=== PATIENT | female | born 1940 | race Caucasian/White ===

== ENCOUNTER 2025-03-26 10:47 | Emergency (ER) | payer BC, SELFPAY ==
[2025-03-26 10:51] VITALS: BP 166/85
--- NOTE | 2025-03-26 11:21 | ED.GENMED ---
History of Present Illness
General
Chief Complaint: DVT/Possible Blood Clot
Source: patient and family (Daughter)
Exam Limitations: none
Time Seen by Provider: 03/26/25 11:12
Nursing documentation reviewed up to this point in time: agreed with
History of Present Illness
History of Present Illness:
84-year-old female with past medical history of breast cancer in remission, Mohs surgery on her left lower leg approximately 5 months ago who presents to the emergency department with her daughter for evaluation of left leg pain and swelling.
Patient reports onset of symptoms about 2 or 3 days ago and they have been constant since that time. She reports pain and swelling in the lower leg extending from just below the knee down towards the ankle and foot. She did have Mohs surgery by 5
months ago and still has minor wound on the medial left ankle; she says she was scratching the area recently and did cause minor skin abrasion. Aside from pain and swelling patient reports some mild pain in her right flank/mid back for the past 2
or 3 days as well. She denies any shortness of breath. She denies any fever or chills. She denies any other acute complaints. Patient makes note that she recently was driving for 2 days from [place] with her daughter; they were concerned for DVT
however patient denies any known history of DVT.
Review of Systems
Review of Systems
All Other Systems: ROS reviewed and negative except as documented in HPI and ROS
Constitutional: Denies fever or chills
Respiratory: Denies trouble breathing
Cardiac: Denies chest pain
ABD/GI: Denies abdominal pain, nausea or vomiting
Musculoskeletal: Reports muscle pain, edema and back pain; Denies neck pain
Neurological: Denies dizzy or headache
Phy Exam
Physical Exam
Physical Exam:
General: Awake, alert, oriented x3; no acute distress
Head: Normocephalic, atraumatic
Eyes: Conjunctiva normal, sclera anicteric
Throat: Airway intact, handling secretions
Neck: Trachea midline, supple without meningismus
Lungs: Clear to auscultation bilaterally, no wheezing, rales, rhonchi
Heart: Regular rate and rhythm, no murmurs, gallops, or rubs
Abd: Soft, non distended, nontender
Back: No signs of trauma to the back or flank and no tenderness in the right mid back/scapular region in the area of patient's reported pain
Neuro: Grossly intact
Skin: Patient does have minor abrasion to the medial left ankle and some erythema around the medial ankle and warmth in the area
Extremities: Patient has skin findings as above she also has generalized edema from the left mid calf extending down to the left foot; she has a palpable left pulse dorsalis pedis; right lower extremity no edema and no skin changes
Scores
Heart Failure Risk
Heart Failure Risk Score: Not Applicable
Heart Score for Chest Pain Patients
STEMI patient?: Not applicable
Withdrawal Assessment of Alcohol
Withdrawal Assessment Completed?: Not applicable
Course
Orders/Labs/Results
Orders:
Orders
03/26/25 10:56
Venous Doppler Lwr Ext Left [US Periph Venous LOWER Ext LT] Urgent
Comment:
Reason For Exam: swelling
03/26/25 11:21
Electrocardiogram (*1) Urgent
Reason for Study: Chest Pain
CT Chest PE Study Urgent
Comment:
Reason For Exam: right mid back pain, sxs of DVT LLE
EKG- Treatment ONCE
03/26/25 11:41
Basic Metabolic Panel Urgent
Complete Blood Count/With Diff Urgent
Troponin I Urgent
03/26/25 13:13
PTT Urgent
Prothrombin Time Urgent
03/26/25 13:48
Cephalexin Monohydrate [Keflex] 500 mg PO NOW STA
Abnormal Lab Results
03/26/25
11:41
RBC 3.26 L 10^6/uL
(4.20-5.40)
Hgb 10.7 L g/dL
(12.0-16.0)
Hct 33.3 L %
(37.0-47.0)
MCV 102.1 H fL
(81.0-99.0)
MCH 32.8 H pg
(27.0-31.0)
MCHC 32.1 L g/dL
(33.0-37.0)
Monocytes % 10.4 H %
(1.7-9.3)
BUN 31 H mg/dl
(7-17)
03/26/25 11:41
03/26/25 11:41
Vital Signs
Initial and Last Documented VS:
Initial Vital Signs
Temp Pulse Resp BP Pulse Ox
37.1 C 68 18 166/85 98
03/26/25 10:51 03/26/25 10:51 03/26/25 10:51 03/26/25 10:51 03/26/25 10:51
Last Documented Vital Signs
Temp Pulse Resp BP Pulse Ox
37.1 C 68 18 166/85 98
03/26/25 10:51 03/26/25 10:51 03/26/25 10:51 03/26/25 10:51 03/26/25 13:00
MDM/Problems Addressed
Differential Diagnosis Includes:
DVT, cellulitis, dependent edema
MDM/Problems Addressed:
84-year-old female presents for evaluation of atraumatic left lower extremity pain and swelling after recent long car ride from [place]. She is also having some right mid back pain over the same period of time. She is hypertensive but otherwise
normal vitals. Physical exam as above. Plan to check ultrasound of the left leg to rule out DVT. Given her report of right flank pain as well she should be ruled out for PE with CT chest. Check basic labs and EKG. Will reassess after the above.
Labs reviewed: CBC shows mild anemia�discussed with patient need for long-term follow-up of this. Chemistry no clinically significant abnormalities. EKG sinus rhythm with negative troponin. Ultrasound of the leg shows no signs of DVT. CT chest
no PE or other acute abnormalities. Overall I suspect her flank pain is musculoskeletal she says that it started after long car ride. Left lower extremity suspect cellulitis�she does have abrasions and postoperative wound with erythema and warmth
in the area consistent with cellulitis. Will plan to treat with antibiotics. I spoke to patient and daughter at length about follow-up plan and return precautions. Patient is new to the area and does not yet have a primary doctor and so she was
put in for referral for a new primary physician via our PCP referral line. Patient and daughter comfortable with plan. All questions answered.
*Radiology
Radiology exam reviewed: radiology read reviewed
*Pulse Oximetry
SaO2: 98
Oxygen Mode of Delivery: Room air
Patient hypoxic: no (98%)
*Critical Care Note
Total Time (30-74mins, 75-104mins- exclusive of procedures): Not Applicable
Data Reviewed
Source: patient and family
ED Attending Note
-
Portions of this chart may have been created with voice recognition software.� Occasional wrong word or��sound alike� substitutions may have occurred due to the inherent limitations of voice recognition software.
Discharge Plan
Departure
Patient Disposition: Home (Routine Discharge)
Date of Disposition: 03/26/25
Time of Disposition: 13:49
Patient with high blood pressure during this ER visit?: Yes
Discharge Problem:
Cellulitis, Flank pain
Instructions: Cellulitis (Skin Infection), Adult (DC)
Prescriptions:
New
cephalexin 500 mg capsule
500 mg PO QID 7 Days Qty: 28 0RF
Referrals:
NONE,* [Family Provider, Internal Medicine]
Activity Restrictions/Additional Instructions:
Thank you for visiting the Emergency Department at [facility].
1. Please schedule a follow up appointment as directed. Call first thing tomorrow morning to make an appointment.
2. If indicated, please take your medications as instructed and indicated on discharge paperwork.
3. If any of your symptoms do not improve, or persist, or become more severe within 6-12 hours, please return to the emergency department for further care.
4. Please return to the emergency department if you develop a headache, neck pain/stiffness, fever greater than 100.4F, chest pain, shortness of breath, persistent nausea, vomiting, slurred speech, difficulty walking, numbness/tingling, weakness,
signs of infection or any other symptoms that are worrisome to you.
Please call [phone] if you have any questions.
Interventions
Interventions:
*Risk Screen - Suicide Last Done: 03/26/25 10:51
*General Assessment Last Done: 03/26/25 10:51
*Neglect/Abuse Screening Last Done: 03/26/25 10:51
*ED- Fall Risk Assessment Last Done: 03/26/25 13:31
*ED COVID-19 Vaccine History Last Done: 03/26/25 13:31
*ED Influenza Vaccine History Last Done: 03/26/25 13:31
ED- Cardiac Assessment Last Done: 03/26/25 13:00
ED- Pulmonary Assessment Last Done: 03/26/25 13:00
ED-Peripheral Vascular Assessment Last Done: 03/26/25 13:00
ED-Skin Assessment Last Done: 03/26/25 13:00
Discharge Date and Time
Print Language: SLOVAK
[2025-03-26 12:28] LABS: Hematocrit 33.3 % (37.0-47.0); Hemoglobin 10.7 g/dL (12.0-16.0); Mean Corp Hgb Conc. 32.1 g/dL (33.0-37.0); Mean Corpuscular Volume 102.1 fL (81.0-99.0); Nucleated Red Blood Cells % 0 %; Red Cell Dist. Width 13.5 % (11.5-14.5)
[2025-03-26 12:34] LABS: Blood Urea Nitrogen 31 mg/dl (7-17); Calcium 9.4 mg/dl (8.4-10.2); Carbon Dioxide 26 mmol/L (22-30); Chloride 102 mmol/L (98-107); Glucose 92 mg/dl (70-99); Sodium 138 mmol/L (135-145); eGFR 54.87
[2025-03-26 12:47] LABS: Troponin I < 0.012 ng/ml
[2025-03-26 13:38] LABS: APTT 23.4 Sec (23.4-35.0); INR 0.94; PT 12.9 Sec (11.4-14.6)
[2025-03-26] MEDS: KEFLEX 500 MG PO (13:57)
== END 2025-03-26 14:08 | disposition home or self-care (01) ==
LOC: EMR 10:47
PROVIDERS: EMERGENCY PHYSICIAN Emergency Medicine
DX: L03.116 Cellulitis of left lower limb (principal); R10.9 Unspecified abdominal pain; M79.605 Pain in left leg; M54.6 Pain in thoracic spine; S90.512A Abrasion, left ankle, initial encounter; X58.XXXA Exposure to other specified factors, initial encounter; Z85.3 Personal history of malignant neoplasm of breast; Z85.828 Personal history of other malignant neoplasm of skin
CPT/HCPCS: 99285; 71275; 80048; 84484; 85025; 85610; 85730; 93005; 93971; Q9967

== ENCOUNTER 2025-04-04 16:52 | Emergency (ER) | payer BC, SELFPAY ==
--- NOTE | 2025-04-04 19:57 | ED.GENMED ---
History of Present Illness
General
Chief Complaint: Fall
Source: patient and family
Time Seen by Provider: 04/04/25 19:43
History of Present Illness
History of Present Illness:
Note:
CHIEF COMPLAINT(S)
Head injury and pain following a fall.
HISTORY OF PRESENT ILLNESS
The patient is an 84-year-old female who presented to the emergency department following a fall, during which she struck the back of her head. She describes the impact as 'really whacked hard,' causing significant discomfort. The incident occurred
around 7:50 PM, and her family member reports the patient asked repeatedly about an insurance card following the event, suggesting some memory loss or confusion. A CT scan was conducted, which revealed no bleeding or skull fractures, though a mild
concussion is suspected.
The patient expresses significant pain when lying on her backside and describes it as localized to the area that contacted the ground. Despite the impact, she does not suspect any fractured bones and is ambulating independently. She acknowledges a
history of a knee replacement.
Recently, the patient had a consultation for a swollen and infected area on her leg, believed to be related to cancer surgery. She underwent various tests, including an ultrasound and chest evaluation, and was treated with antibiotics. Although the
swelling has reduced, she inquires about the need for further treatment. Her skin shows dryness with superficial scratches, attributed to frequent scratching.
PAST MEDICAL AND SURIGICAL HISTORY
- Knee replacement surgery
- History of skin surgery with resultant scarring
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
The patient is in the process of transitioning her medical care from [place] to [place] and notes the earlier onset of darkness as a challenge in her new location.
REVIEW OF SYSTEMS
- Neurological: Memory loss and confusion following the head trauma
- Musculoskeletal: Pain in the buttocks from the fall
- Skin: Dryness and superficial scratches
- General: Mild concussion symptoms suspected
PHYSICAL EXAM
General: Alert, cooperative, no acute distress.
Skin: Dry with superficial scratches; mild brawny edema noted in the left lower extremity. No evidence cellulitis. No redness. No changes in skin temperature. Normal perfusion bilaterally
Musculoskeletal: Full range of motion, intact strength in all extremities.
Neurological: Alert and oriented; normal bilateral strength, no pronator drift, cranial nerves intact. Gait normal.
Respiratory: No respiratory distress.
Other systems unremarkable.
PROBLEM LIST
Acute Problems:
- Mild concussion
- Pain in the buttocks from fall
- Swollen leg with history of infection
PLAN
- Reassure the patient regarding the CT results, explaining no skull fractures or bleeding in the brain.
- Recommend the use of acetaminophen for headache management and continue monitoring for worsening symptoms.
- Provide an ice pack to reduce swelling from head injury.
- Discuss the prior leg swelling and recommend consulting with her regular physician for a follow-up ultrasound if symptoms persist.
- Advise keeping the leg elevated to manage edema.
- Scheduled follow-up with primary care doctor regarding further management of the previously swollen and infected leg.
DIFFERENTIAL DIAGNOSIS
The Differential Diagnosis includes, in no particular order and is not limited to:
- Traumatic brain injury (concussion)
- Skull fracture
- Intracranial hemorrhage
- Contusion
- Osteoporotic fracture
- Soft tissue injury
- Infection
- Deep vein thrombosis (for leg swelling)
- Cellulitis
- Post-traumatic headache
Disposition:
SUMMARY OF ENCOUNTER
The patient, an 84-year-old female, presented to the emergency department following a fall where she hit the back of her head. The fall resulted in significant pain and some transient confusion. A CT scan of the head was performed, showing no acute
intracranial hemorrhage or fractures. There was evidence of a cephalohematoma on the posterior scalp, consistent with minor trauma and a mild concussion. The patient was assessed as stable and suitable for discharge after being provided with
reassurance about the imaging results and pain management guidance.
DISPOSITION
The patient was discharged with her family.
ASSESSMENT
Mild concussion and cephalohematoma on the posterior scalp following a fall.
PLAN
Reassure the patient about the CT results indicating no major injuries. Recommend acetaminophen for pain management. Provide patient education on signs of worsening symptoms that require immediate attention. Schedule follow-up with a primary care
physician for further evaluation of ongoing symptoms related to the leg swelling and head injury.
INDEPENDENT REVIEW OF LABS AND INTERPRETATION OF TESTS
- My independent interpretation of the head CT shows no acute intracranial hemorrhage or fractures but a cephalohematoma on the posterior scalp.
PATIENT EDUCATION AND COUNSELING
Provided education on mild concussion management, signs to watch for that would require immediate attention such as worsening headaches, nausea, or confusion, and the importance of follow-up care.
FOLLOW-UP INSTRUCTIONS
Advised to follow-up with primary care physician for continued evaluation of symptoms related to the head injury and leg swelling.
MEDICATION RECONCILIATION
Prescription for acetaminophen provided for headache and pain management.
MEDICAL DECISION MAKING
- Complexity of Data Reviewed: Chronic conditions affecting care including knee replacement history and recent skin surgery. Differential diagnoses considered included traumatic brain injury (concussion), skull fracture, intracranial hemorrhage,
contusion, osteoporotic fracture, soft tissue injury, infection, deep vein thrombosis, cellulitis, and post-traumatic headache.
- Data:
Category 1: Labs and imaging studies reviewed included a normal DVT ultrasound of the left lower extremity and no evidence of pulmonary embolism on a prior CTA.
Category 3: Based on todays head CT interpretation and discussions, management decisions were focused on outpatient care with family reassurance and monitoring.
- Risk: Consideration of Admission/Observation: Escalation of care including admission/observation was considered given the complexity and risk of the patients presenting complaint and exam findings. However, ultimately, the patient is safe for
outpatient management with close follow-up. Reasoning: Work-up reassuring, does not reveal any acute life/organ-threatening processes, patients symptoms well controlled upon reevaluation, reexamination is reassuring, vitals are stable, patient
agreeable with discharge, reliable for follow-up.
DIAGNOSIS
- Mild concussion, ICD-10: S06.0X0A
- Cephalohematoma, ICD-10: S00.81XA
Phy Exam
Physical Exam
Physical Exam:
.
Course
Orders/Labs/Results
Orders:
Orders
04/04/25 16:[address] [CT Head W/o Iv Contrast] Urgent
Comment:
Reason For Exam: trauma
Vital Signs
Initial and Last Documented VS:
Initial Vital Signs
Temp Pulse Resp Pulse Ox
98.3 F 74 18 95
04/04/25 16:54 04/04/25 16:54 04/04/25 16:54 04/04/25 16:54
Last Documented Vital Signs
Temp Pulse Resp Pulse Ox
98.3 F 74 18 95
04/04/25 16:54 04/04/25 16:54 04/04/25 16:54 04/04/25 16:54
*Pulse Oximetry
SaO2: 95
Oxygen Mode of Delivery: Room air
Patient hypoxic: no
*Critical Care Note
Total Time (30-74mins, 75-104mins- exclusive of procedures): Not Applicable
ED Attending Note
-
Portions of this chart may have been created with voice recognition software.� Occasional wrong word or��sound alike� substitutions may have occurred due to the inherent limitations of voice recognition software.
Discharge Plan
Departure
Patient Disposition: Home (Routine Discharge)
Date of Disposition: 04/04/25
Time of Disposition: 19:57
Patient with high blood pressure during this ER visit?: No
Discharge Problem:
Head injury, Concussion
Instructions: Concussion in adults
Prescriptions:
No Action
cephalexin 500 mg capsule
500 mg PO QID 7 Days Qty: 28 0RF
Referrals:
Deepali Hoff CRNP [Family Provider, Internal Medicine]
Activity Restrictions/Additional Instructions:
Please return immediately for changes in mentation, vomiting, worsening headache, weakness of any kind or any other concerns. Please follow-up with your doctor in the next 1 week for follow-up and reevaluation.
Discharge Date and Time
Print Language: AMHARIC
[2025-04-04 20:06] VITALS: BP 165/77
== END 2025-04-04 20:08 | disposition home or self-care (01) ==
LOC: EMR 16:52
PROVIDERS: EMERGENCY PHYSICIAN Emergency Medicine; FAMILY PHYSICIAN Nurse Practitioner
DX: S06.0XAA Concussion with loss of consciousness status unknown, initial encounter (principal); X58.XXXA Exposure to other specified factors, initial encounter; Z96.659 Presence of unspecified artificial knee joint
CPT/HCPCS: 99284; 70450